=== PATIENT | male | born 1980 ===

== ENCOUNTER 2018-11-28 08:15 | Day surgery (SDC) | payer OTHER ==
[~2018-11-28 08:15] MED LIST: CLARITIN10 M1 PO; DICY20TA PO; INMODIUM PO; INTESTINEX680 MG PO; MIRALAX12 EA PO; OXYC1TAB9 PO; SINGULAIR 10MG10 MG PO; TRAM1TAB98 PO
[2018-11-28] MEDS ORDERED: DICY20TA PO (12:00)
== END 2018-11-28 13:00 | disposition home or self-care (01) ==
LOC: AMB-ENDOS 08:15
DX: K57.30 Diverticulosis of large intestine without perforation or abscess without bleeding (principal)